=== PATIENT | female | born 1990 | race Caucasian/White ===

== ENCOUNTER → 2018-10-27 18:50 | Outpatient (CLI) | payer OTHER, SELFPAY | PROVIDERS: Family Provider Obstetrics & Gynecology; PCP Obstetrics & Gynecology; Visit Provider Physician Assistant | DX: N89.8 Other specified noninflammatory disorders of vagina (principal) | CPT/HCPCS: 87210 ==

== ENCOUNTER → 2018-10-30 12:17 | Outpatient (CLI) | payer OTHER, SELFPAY ==
--- NOTE | 2018-10-30 12:19 | DI.US.S_ITS ---
PROCEDURE: US PELVIC COMPLETE INDICATIONS: VAGINAL DISCHARGE TECHNIQUE: Real-time scanning was performed of the pelvic organs, with image documentation. Additional endovaginal scanning was necessary due to incomplete visualization of the adnexal and endometrial structures by transabdominal scanning. COMPARISON: None. FINDINGS: Transabdominal scanning: Limited scanning through the kidneys shows no hydronephrosis. No pathologic free abdominal or pelvic fluid. The uterus is vertically oriented with grossly normal contours. Endovaginal scanning: Uterus: Uterus is normal in size at 10.4 x 4.9 x 7.6 cm. The endometrium measures 9.4 mm in combined thickness. Normal myometrial vascularity. Trace amount of simple appearing fluid present in the cervix. Ovaries: Right ovary measures 3.7 x 1.9 x 3.3 cm and the left measures 3.6 x 1.5 x 1.9 cm. Left ovary contains a dominant follicle measuring 1.7 cm. Right ovary demonstrates normal follicular echotexture. Both ovaries have appropriate vascularity. No suspicious adnexal masses or free fluid. IMPRESSION: Normal pelvic ultrasound. Dictated by: Hayde Lunsford M.D. on 10/30/2018 at 14:09 Approved by: Hayde Lunsford M.D. on 10/30/2018 at 14:11
== END ==
PROVIDERS: Family Provider Obstetrics & Gynecology; PCP Obstetrics & Gynecology; Visit Provider Physician Assistant
DX: N89.8 Other specified noninflammatory disorders of vagina (principal)
CPT/HCPCS: 76830; 76856

== ENCOUNTER → 2018-11-16 12:51 | Outpatient (CLI) | payer OTHER, SELFPAY ==
[2018-11-16 12:53] LABS: Bacteria Urine None Seen; RBC Urine None Seen (0-5/HPF); WBC Urine None Seen (0-5/HPF)
[2018-11-16 13:08] LABS: Appearance Urine UA CLEAR; Bilirubin Urine UA NEGATIVE (NEGATIVE); Color Urine UA YELLOW; Glucose Urine UA NEGATIVE (Negative); Ketones Urine UA NEGATIVE (NEGATIVE); Leukocyte Esterase Urine UA NEGATIVE (NEGATIVE); Nitrite Urine UA NEGATIVE (Negative); Occult Blood Urine UA 2+ (Negative); Protein Urine UA NEGATIVE (Negative); Urobilinogen Urine UA 0.2 E.U./dL (0.2)
[2018-11-16 13:25] LABS: Culture Indicated Urine Cult Not Indicated; Mucus Urine 1+ (Negative); Squamous Epithelial Cell Urine 1-5 /HPF (0-5/HPF); Triple Phosphate Crystal Urine Few
[2018-11-16 14:43] LABS: Urine Chlamydia NOT DETECTED; Urine N gonorrhoeae NOT DETECTED
== END ==
PROVIDERS: Family Provider Obstetrics & Gynecology; PCP Obstetrics & Gynecology; Visit Provider Physician Assistant
DX: N89.8 Other specified noninflammatory disorders of vagina (principal)
CPT/HCPCS: 81001; 87491; 87591

== ENCOUNTER → 2020-03-28 08:58 | Outpatient (CLI) | payer OTHER, SELFPAY | PROVIDERS: Family Provider Obstetrics & Gynecology; PCP Nurse Practitioner Family; Visit Provider Physician Assistant | DX: R30.0 Dysuria (principal) | CPT/HCPCS: 87077; 87086; 87186 ==

== ENCOUNTER → 2020-07-12 14:08 | Outpatient (CLI) | payer OTHER, SELFPAY | PROVIDERS: Family Provider Obstetrics & Gynecology; PCP Nurse Practitioner Family; Visit Provider Physician Assistant | DX: N34.3 Urethral syndrome, unspecified (principal) | CPT/HCPCS: 87086 ==

== ENCOUNTER → 2021-05-02 09:09 | Outpatient (CLI) | payer OTHER, SELFPAY ==
[2021-05-02 09:34] LABS: Pregnancy Test Urine Negative (Negative)
== END ==
PROVIDERS: Family Provider Obstetrics & Gynecology; PCP Nurse Practitioner Family; Visit Provider Physician Assistant
DX: R30.9 Painful micturition, unspecified (principal); N92.6 Irregular menstruation, unspecified
CPT/HCPCS: 81025; 87077; 87086

== ENCOUNTER → 2023-07-23 08:48 | Outpatient (CLI) | payer OTHER, SELFPAY ==
[2023-07-23 09:44] LABS: Add Manual Diff / Slide Review NO; Basophils Absolute Auto 0 /uL (0-100); Basophils Percent Auto 0.6 % (0-2); Eosinophils Absolute Auto 100 /uL (0-450); Eosinophils Percent Auto 1.6 % (2-4); Hematocrit 40.2 % (36-46); Hemoglobin 13.5 g/dL (12.0-16.0); Lymphocytes Absolute Auto 2000 /uL (1100-4500); Lymphocytes Percent Auto 34.4 % (25-40); Mean Corpuscular HGB Conc 33.7 % (30-36); Mean Corpuscular Hemoglobin 29.1 PG (26-34); Mean Corpuscular Volume 86.3 fL (80-100); Monocytes Absolute Auto 500 /uL (0-900); Monocytes Percent Auto 8.7 % (3-14); Neutrophils Absolute Auto 3100 /uL (1500-7000); Neutrophils Percent Auto 54.7 % (50-75); Platelet Count 286 X10^3/uL (150-400); Red Blood Cell Count 4.66 X10^6/uL (4.0-5.2); Red Cell Distribution Width 13.3 % (11.6-14.8); White Blood Cell Count 5.7 X10^3/uL (4.5-11.0)
[2023-07-23 09:54] LABS: Hemoglobin A1C% w Est Avg Glu 5.7 % (4.0-6.0)
[2023-07-23 10:10] LABS: Alanine Aminotransferase 24 IU/L (<35); Albumin 4.6 g/dL (3.5-5.0); Albumin Globulin Ratio 1.5 (1.0-2.8); Alkaline Phosphatase 55 U/L (38-126); Aspartate Aminotransferase 24 IU/L (14-36); BUN Creatinine Ratio 19.8 (6-22); Bilirubin Total 0.6 mg/dL (0.2-1.3); Blood Urea Nitrogen 16 mg/dL (7-17); Carbon Dioxide 24 mmol/L (22-32); Chloride 105 mmol/L (98-107); Cholesterol 162 mg/dL (140-199); Estimated Glomerular Filt Rate > 60 mL/min (>60); Globulin 3.1 g/dL (1.7-4.1); Glucose 94 mg/dL (70-100); HDL Cholesterol 51 mg/dL (40-60); HEMOLYSIS < 15 (0-50); LDL Cholesterol Calculated 86 mg/dL (<100); Potassium 4.7 mmol/L (3.4-5.1); Sodium 138 mmol/L (137-145); Total Protein 7.7 g/dL (6.3-8.2); Triglycerides 127 mg/dL (35-150)
[2023-07-23 10:37] LABS: TSH w/ Reflex to FT4 1.02 uIU/mL (0.47-4.68)
== END ==
PROVIDERS: Family Provider Obstetrics & Gynecology; PCP Family Medicine; Referring Provider Family Medicine; Visit Provider Family Medicine
DX: Z00.00 Encounter for general adult medical examination without abnormal findings (principal)
CPT/HCPCS: 36415; 80053; 80061; 83036; 84443; 85025

== ENCOUNTER → 2024-03-16 08:28 | Outpatient (CLI) | payer OTHER, SELFPAY ==
[2024-03-16 12:07] LABS: Urine N gonorrhoeae NOT DETECTED
[2024-03-16 12:09] LABS: Urine Chlamydia NOT DETECTED
== END ==
PROVIDERS: Family Provider Obstetrics & Gynecology; PCP Family Medicine; Visit Provider Student in an Organized Health Care Education/Training Program
DX: Z11.3 Encounter for screening for infections with a predominantly sexual mode of transmission (principal)
CPT/HCPCS: 87491; 87591

== ENCOUNTER → 2024-04-17 11:13 | Outpatient (CLI) | payer OTHER, SELFPAY ==
[2024-04-17 12:41] LABS: Add Manual Diff / Slide Review NO; Basophils Absolute Auto 0 /uL (0-100); Basophils Percent Auto 0.2 % (0-2); Eosinophils Absolute Auto 100 /uL (0-450); Eosinophils Percent Auto 0.6 % (2-4); Hematocrit 39.3 % (36-46); Hemoglobin 13.6 g/dL (12.0-16.0); Lymphocytes Absolute Auto 2300 /uL (1100-4500); Lymphocytes Percent Auto 21.8 % (25-40); Mean Corpuscular HGB Conc 34.7 % (30-36); Mean Corpuscular Hemoglobin 29.9 PG (26-34); Mean Corpuscular Volume 86.1 fL (80-100); Monocytes Absolute Auto 700 /uL (0-900); Monocytes Percent Auto 6.3 % (3-14); Neutrophils Absolute Auto 7600 /uL (1500-7000); Neutrophils Percent Auto 71.1 % (50-75); Platelet Count 327 X10^3/uL (150-400); Red Blood Cell Count 4.56 X10^6/uL (4.0-5.2); Red Cell Distribution Width 13.5 % (11.6-14.8); White Blood Cell Count 10.7 X10^3/uL (4.5-11.0)
[2024-04-17 12:54] LABS: Natera Collection Specimen Collected
[2024-04-17 13:28] LABS: Hepatitis B Surface Antigen NEGATIVE s/c (NEGATIVE)
[2024-04-17 13:51] LABS: HIV 1 & 2 Ab/Ag 4th Gen Combo NEGATIVE (NEGATIVE); Hep C Virus Ab w/Reflex Quant NEGATIVE s/c (NEGATIVE)
[2024-04-18 06:18] LABS: RPR Screen Non Reactive (Non Reactive)
[2024-04-18 07:20] LABS: Varicella IgG Antibody 266 index (Immune >165)
== END ==
PROVIDERS: Family Provider Obstetrics & Gynecology; PCP Family Medicine; Referring Provider Student in an Organized Health Care Education/Training Program; Visit Provider Student in an Organized Health Care Education/Training Program
DX: O09.819 Supervision of pregnancy resulting from assisted reproductive technology, unspecified trimester (principal); Z3A.14 14 weeks gestation of pregnancy
CPT/HCPCS: 36415; 80055; 86787; 86803; 86850; 86900; 86901; 87389

== ENCOUNTER → 2024-05-15 14:32 | Outpatient (CLI) | payer OTHER, SELFPAY ==
[2024-05-19 21:12] LABS: AFP Value 39.2 ng/mL (.); Gest Age on Col Date 17.6 weeks (.); Insulin Dep Diabetes No (.); OSBR Risk 1IN 8371 (.); Results Report (.); Test Results *Screen Negative* (.)
== END ==
PROVIDERS: Family Provider Obstetrics & Gynecology; PCP Family Medicine; Referring Provider Obstetrics & Gynecology; Visit Provider Obstetrics & Gynecology
DX: Z36.9 Encounter for antenatal screening, unspecified (principal)
CPT/HCPCS: 82105

== ENCOUNTER → 2024-05-27 10:44 | Outpatient (CLI) | payer OTHER, SELFPAY ==
--- NOTE | 2024-05-27 11:15 | DI.US.S_ITS ---
PROCEDURE: US OB >= 14 WEEKS FETUS INDICATIONS: anatomy scan The calculations are made using the working CASSIE of 10/14/2024. TECHNIQUE: Real-time scanning was performed of the fetus, with image documentation and biometric measurements. Endovaginal scanning: No COMPARISON: None. FINDINGS: General: A single living intrauterine gestation is present. Presentation: Variable. Placenta: Placental position is posterior , without previa. Amniotic fluid index: 15.8 cm, normal range is 5-24 cm. Single deepest vertical pocket is 4.7 cm. heart rate: 157 beats per minute. Maternal cervical canal: 5.1 cm long. Normal lower limit is 2.5 cm. biometrics: Biparietal diameter: 4.6 cm, 20 week 0 day Head circumference: 17.3 cm, 19 week 6 day Abdominal circumference: 16.5 cm, 21 week 4 day Femur length: 3.3 cm, 20 week 2 day Clinically estimated gestational age: 20 week 0 day Composite gestational age from present scan: 20 week 3 day Estimated weight and percentile: 380 g, 88 percentile Anatomic survey: Neuro: Ventricles are non-dilated at less than 10 mm. Cisterna magna is normal at 3-11 mm. Cerebellum is normal in size and morphology. Nuchal skin fold: Normal at less than 6 mm between 14-21 weeks gestational age. Face: Nose and lips, facial profile are normal. Spine: No evidence for spina bifida. Heart: 4-chambered heart is present, with normal ventricular outflow tracts. Diaphragm: Diaphragm is intact. Stomach: Left-sided stomach is present. Kidneys: No hydronephrosis. Normal is less than 5 mm in 2nd trimester, less than 7 mm in 3rd trimester. Cord: 3-vessel cord has orthotopic insertion. Bladder: Normal in size. Extremities: All 4 extremities identified. IMPRESSION: Single live intrauterine consistent with 20 week 3 day gestation by current ultrasound. Normal anatomic survey Approved by: Cullen Villanueva M.D. on 05/27/2024 at 17:50
== END ==
LOC: US 10:44
PROVIDERS: Family Provider Obstetrics & Gynecology; PCP Family Medicine; Referring Provider Student in an Organized Health Care Education/Training Program; Visit Provider Student in an Organized Health Care Education/Training Program
DX: Z34.02 Encounter for supervision of normal first pregnancy, second trimester (principal); Z3A.20 20 weeks gestation of pregnancy
CPT/HCPCS: 76811

== ENCOUNTER → 2024-07-10 12:00 | Outpatient (CLI) | payer OTHER, SELFPAY ==
[2024-07-10 14:04] LABS: Hematocrit 37.5 % (36-46); Hemoglobin 12.7 g/dL (12.0-16.0)
[2024-07-10 14:32] LABS: GTT (PREG) 1 Hour PP 50gm Dose 207 mg/dL (76-139)
== END ==
PROVIDERS: Family Provider Obstetrics & Gynecology; PCP Family Medicine; Referring Provider Student in an Organized Health Care Education/Training Program; Visit Provider Student in an Organized Health Care Education/Training Program
DX: Z34.03 Encounter for supervision of normal first pregnancy, third trimester (principal); Z3A.26 26 weeks gestation of pregnancy
CPT/HCPCS: 36415; 82950; 85014; 85018

== ENCOUNTER → 2024-07-22 09:50 | Outpatient (CLI) | payer OTHER, SELFPAY ==
--- NOTE | 2024-07-22 16:20 | DIAB.GDA ---
Initial Gestational Diabetes Assessment Name: Larisa Link Date: 07/22/24 Time: Dx: Gestational Diabetes Provider: Abigail CASSIE: 10/14/2024 Weeks: 28 Larisa presents for initial visit today with spouse, Alonzo. No previous GDM dx with prior pregnancies. Last hgA1c in 07/2023 indicate prediabetes range of 5.7%. Endorses FH of DM with father. No OGTT but significantly elevated screen of 207mg/dl. Reports her main concern today is how BG may impact baby. Also wondering if she needs DM medications, which at this time does not seem needed given BG management. Reports adequate, sometimes over rec CHO intake. Most BG in goal even with higher CHO intake, except when eating fast food per report. fast food intake more likely during basketball season due to traveling [employer]. Diet Recall: 8a: sweetened oatmeal x 1 pkt OR bagel and cream cheese OR protein bar OR sasage, egg, +/- small pancake 1-2 845a: banana 11a-1p: leftovers or apple and pb or cheese sn: 1c trailmix or nothing 6-8p: protein, 1/2-1c CHO, nonstarch veggies sn: nothing or ice cream 80oz water 12oz milk with dinner Anthropometrics: Ht: 64 Wt: 195# 07/10/24 Prepregnancy wt: 175# Physical Activity: Walks after dinner x 15-20 mins. 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 Self-Monitoring Blood Glucose: Checking FBG and 2 hour pc. All FBG in goal and postprandial readings all in goal, except elevation after eating fast food. Date Pre Post Pre Post Pre Post HS 07/16 82 81 99 93 07/17 78 65 109 07/18 80 112 144 107 07/19 81 79 107 120 07/20 84 91 97 95 07/21 78 96 93 07/22 79 Diabetes Medications: none Pertinent Labs: Screen: 207 mg/dl 07/2024 HgA1c: 5.7% 07/2023 Nutrition Rx: Carbohydrates: Meal: 45-60g lunch and dinner; 30-45g breakfast Snack: 15-30g Nutrition Diagnosis: Altered nutrition related lab value r/t GDM dx aeb recent elevated glucola screen Nutrition and food related knowledge deficit r/t new diagnosis and no previous education aeb pt report and recent labs Intervention: This participant was very receptive. Provided appropriate educational handouts. Discussed the following topics: GDM pathophysiology and impact of hyperglycemia on mom and baby Risk for T2DM for mom and baby in the future Ways to reduce risk T2DM Plate Method, meal timing, carb counting, pairing macronutrients and spreading out CHO for better BG management Blood glucose goals (FBG: <95 and 1 hour <140 mg/dL or 2 hour <120mg/dl); importance of checking 4x per day (FBG and pc) Impact of macronutrients on blood glucose Recommended servings for carbohydrates at meals and snacks Brainstormed appropriate meal plan based on her food preferences Role of physical activity and following provider guidelines for safety Goals: Move banana away from breakfast, try afternoon- new Continue checking BG 4x per day - continue Follow-up: RAOUL SEWELL follow-up in one week via messaging and 2 weeks 1:1 Enedina Roca RDN, DONATO Certified Diabetes Care and Validation Engineer T: [phone] F: [phone] [email or web address] Thank you for this referral
== END ==
PROVIDERS: Family Provider Obstetrics & Gynecology; PCP Family Medicine; Referring Provider Student in an Organized Health Care Education/Training Program
DX: O24.419 Gestational diabetes mellitus in pregnancy, unspecified control (principal); Z3A.28 28 weeks gestation of pregnancy; Z71.3 Dietary counseling and surveillance; Z83.3 Family history of diabetes mellitus
CPT/HCPCS: 97802

== ENCOUNTER → 2024-08-06 08:52 | Outpatient (CLI) | payer OTHER, SELFPAY ==
--- NOTE | 2024-08-06 09:00 | DIAB.GDFU ---
Follow-up Gestational Diabetes Assessment Name: Larisa Link Date: 08/06/23 Time: 90a Dx: Gestational Diabetes Provider: Abigail CASSIE: 10/14/2024 Weeks: 30 Larisa presents for follow-up today. No previous GDM dx with prior pregnancies. Last hgA1c in 07/2023 indicate prediabetes range of 5.7%. Endorses FH of DM with father. No OGTT but significantly elevated screen of 207mg/dl. Reports some stress with this diagnosis and choosing foods to eat. Endorses some guilt about any elevated BG, despite most being in goal. A few times had a BG <70mg/dl after very low CHO meal and felt fatigue. Ate to reduce symptoms and felt better. May be under eating at times due to worries about BG results. Was at times feeling stress about a BG of even 100mg/dl after meal. Eating cottage cheese if still hungry after a meal. 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 Diet Recall: 8a: sweetened oatmeal x 1 pkt with 12oz milk OR 2 small protein pancakes with sausage and eggs 11a-1p: leftovers prepared by spouse 1-3p: banana or apple and cheese 6-8p: taco bowl with 3/4c brown rice OR steak, potatoes and veg OR breaded pork chop with veggies and salad Anthropometrics: Ht: 64 Wt: 195# 07/10/24 Prepregnancy wt: 175# Physical Activity: Walks after dinner x 15-20 mins. 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 Self-Monitoring Blood Glucose: Checking FBG and 2 hour pc. All FBG in goal and postprandial readings show 3 elevations over the last week (slightly less than week prior) and accounted fro with excessive intake, ie pizza or grilled cheese with tomato soup. Date Pre Post Pre Post Pre Post HS 07/31 94 102 92 110 08/01 93 68 105 105 08/02 79 104 110 120 08/03 83 114 125 08/04 81 88 136 160 08/05 83 109 119 08/06 89 Diabetes Medications: none Pertinent Labs: Screen: 207 mg/dl 07/2024 HgA1c: 5.7% 07/2023 Nutrition Rx: Carbohydrates: Meal: 45-60g lunch and dinner; 30-45g breakfast Snack: 15-30g Nutrition Diagnosis: Altered nutrition related lab value r/t GDM dx aeb recent elevated glucola screen Nutrition and food related knowledge deficit r/t new diagnosis and no previous education aeb pt report and recent labs- improving Intervention: This participant was very receptive. Provided appropriate educational handouts. Discussed the following topics: Carb recs and label reading Portions at lunch and brainstorming ways to improve Practice of anton for herself and acknowledging she is doing well overall with GDM Review of ADA recs for 2 hours pc of 100-120mg/dl Eating out in brief, more next visit Goals: Move banana away from breakfast, try afternoon- met Continue checking BG 4x per day - met Ask spouse to measure carbs in lunches- new Bring snacks to work- new Practice some anton with self- new Follow-up: RAOUL SEWELL follow-up 2 weeks 1:1 Enedina Roca RDN, DONATO Certified Diabetes Care and Bumper Operator T: [phone] F: [phone] [email or web address] Thank you for this referral
== END ==
PROVIDERS: Family Provider Obstetrics & Gynecology; PCP Family Medicine; Referring Provider Family Medicine
DX: O24.419 Gestational diabetes mellitus in pregnancy, unspecified control (principal); Z3A.30 30 weeks gestation of pregnancy; Z71.3 Dietary counseling and surveillance; Z83.3 Family history of diabetes mellitus
CPT/HCPCS: 97803

== ENCOUNTER → 2024-08-20 16:22 | Outpatient (CLI) | payer OTHER, SELFPAY ==
--- NOTE | 2024-08-20 16:28 | DIAB.GDFU ---
Follow-up Gestational Diabetes Assessment Name: Larisa Link Date: 08/20/23 Time: 335-4p Dx: Gestational Diabetes Provider: Abigail CASSIE: 10/14/2024 Weeks: 32 Larisa presents for follow-up today virtually using Portal. No previous GDM dx with prior pregnancies. Last hgA1c in 07/2023 indicate prediabetes range of 5.7%. Endorses FH of DM with father. No OGTT but significantly elevated screen of 207mg/dl. Alonzo has been portioning out lunches for her. Dinner readings have been higher. Anything with noodles or rice seems to be impacting BG. Processed foods at dinner also impact, ie rice a yasemin. Potatoes don?t impact as much. Brown rice reported has less impact. A few times, not eating much in the afternoon, then very hungry at dinner leading to larger portions. Practicing more anton with self, as we discussed. Had baby shower. [employer]-trv made some low CHO sweets for her. Daughter has a tournament this weekend out of town. Plans to bring sandwiches and snacks. Also using Starbucksck pot for evening meals on late night games. Less walks lately with basketball practice. SMBG: Date Pre Post Pre Post Pre Post notes 08/12 83 111 93 121 08/13 88 127 98 124 08/14 93 119 x 125 08/15 83 99 111 115 08/16 85 74 107 98 08/17 92 x 142 124 1 hour 08/18 80 94 105 142 Spaghetti at dinner 08/19 87 103 99 119 08/20 77 94 Add a more robust afternoon snack (more protein, some carb, and veggies) Keep noodles or rice or pasta to 1c If possible, Anthropometrics: Ht: 64 Wt: 195# 07/10/24 Prepregnancy wt: 175# Physical Activity: Walks after dinner x 15-20 mins. 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 Self-Monitoring Blood Glucose: Checking FBG and 2 hour pc. All FBG in goal and postprandial readings show 3 elevations over the last week (slightly less than week prior) and accounted fro with excessive intake, ie pizza or grilled cheese with tomato soup. Date Pre Post Pre Post Pre Post HS 07/31 94 102 92 110 08/01 93 68 105 105 08/02 79 104 110 120 08/03 83 114 125 08/04 81 88 136 160 08/05 83 109 119 08/06 89 Diabetes Medications: none Pertinent Labs: Screen: 207 mg/dl 07/2024 HgA1c: 5.7% 07/2023 Nutrition Rx: Carbohydrates: Meal: 45-60g lunch and dinner; 30-45g breakfast Snack: 15-30g Nutrition Diagnosis: Altered nutrition related lab value r/t GDM dx aeb recent elevated glucola screen Nutrition and food related knowledge deficit r/t new diagnosis and no previous education aeb pt report and recent labs- improving Intervention: This participant was very receptive. Provided appropriate educational handouts. Discussed the following topics: Carb recs and label reading Portions at lunch and brainstorming ways to improve Practice of anton for herself and acknowledging she is doing well overall with GDM Review of ADA recs for 2 hours pc of 100-120mg/dl Eating out in brief, more next visit Goals: Move banana away from breakfast, try afternoon- met Continue checking BG 4x per day - met Ask spouse to measure carbs in lunches- new Bring snacks to work- new Practice some anton with self- new Follow-up: RAOUL SEWELL follow-up 2 weeks 1:1 llow-up in one week Enedina Roca RDN, DONATO Certified Diabetes Care and Sexual Assault Social Worker T: [phone] F: [phone] [email or web address] Thank you for this referral
--- NOTE | 2024-08-20 16:31 | DIAB.GDFU ---
Follow-up Gestational Diabetes Assessment Name: Larisa Link Date: 08/20/23 Time: 335-4p Dx: Gestational Diabetes Provider: Abigail CASSIE: 10/14/2024 Weeks: 32 Larisa presents for follow-up today virtually using Portal. No previous GDM dx with prior pregnancies. Last hgA1c in 07/2023 indicate prediabetes range of 5.7%. Endorses FH of DM with father. No OGTT but significantly elevated screen of 207mg/dl. Alonzo has been portioning out lunches for her. Dinner readings have been higher. Anything with noodles or rice seems to be impacting BG. Processed foods at dinner also impact, ie rice a yasemin. Potatoes don?t impact as much. Brown rice reported has less impact. A few times, not eating much in the afternoon, then very hungry at dinner leading to larger portions. Practicing more anton with self, as we discussed. Had baby shower. [employer]sn[employer]fsn made some low CHO sweets for her. Daughter has a tournament this weekend out of town. Plans to bring sandwiches and snacks. Also using crock pot for evening meals on late night games. Less walks lately with basketball practice. Plans for repeat c/s. Anthropometrics: Ht: 64 Wt: 200# 08/10/2023 195# 07/10/24 Prepregnancy wt: 175# Physical Activity: Not walking as much after meals recently with restart of basketball with kiddos. Self-Monitoring Blood Glucose: Checking FBG and 2 hour pc. All FBG in goal and postprandial readings show a pattern of after dinner elevations. Seems related to portions and excessive hunger pre meal. Date Pre Post Pre Post Pre Post notes 08/12 83 111 93 121 08/13 88 127 98 124 08/14 93 119 x 125 08/15 83 99 111 115 08/16 85 74 107 98 08/17 92 x 142 124 1 hour 08/18 80 94 105 142 Spaghetti at dinner 08/19 87 103 99 119 08/20 77 94 Diabetes Medications: none Pertinent Labs: Screen: 207 mg/dl 07/2024 HgA1c: 5.7% 07/2023 Nutrition Rx: Carbohydrates: Meal: 45-60g lunch and dinner; 30-45g breakfast Snack: 15-30g Nutrition Diagnosis: Altered nutrition related lab value r/t GDM dx aeb recent elevated glucola screen Nutrition and food related knowledge deficit r/t new diagnosis and no previous education aeb pt report and recent labs- improved Predicted excessive CHO intake r/t hunger in the afternoon from inadequate intake at snack aeb pt report- new Intervention: This participant was very receptive. Provided appropriate educational handouts. Discussed the following topics: Portions for meals and snacks Incorporating more protein and veggies at afternoon snack POrtions for CHO for potatoes vs pasta/rice Physical activity Goals: Ask spouse to measure carbs in lunches- met Bring snacks to work- met Practice some anton with self- met Add a more robust afternoon snack (more protein, some carb, and veggies)- new Keep noodles or rice or pasta to 1c- new If possible, move more after dinner- new Follow-up: RAOUL SEWELL follow-up 2 weeks Enedina Roca RDN, DONATO Certified Diabetes Care and [employer] Worker T: [phone] F: [phone] [email or web address] Thank you for this referral
== END ==
PROVIDERS: Family Provider Obstetrics & Gynecology; PCP Family Medicine; Referring Provider Student in an Organized Health Care Education/Training Program
DX: O24.419 Gestational diabetes mellitus in pregnancy, unspecified control (principal); Z3A.32 32 weeks gestation of pregnancy; Z71.3 Dietary counseling and surveillance; Z83.3 Family history of diabetes mellitus
CPT/HCPCS: 97803

== ENCOUNTER → 2024-08-25 08:29 | Outpatient (CLI) | payer OTHER, SELFPAY ==
--- NOTE | 2024-08-25 08:29 | DI.US.S_ITS ---
PROCEDURE: US OB LIMITED INDICATIONS: GDM. IVF. GROWTH. OUTSIDE/PRIOR DATING DATA: IVF patient. Unknown transfer date or embryo age First dating scan (date and location): Not available. The calculations are made using the working CASSIE of 10/14/24. TECHNIQUE: Real-time scanning was performed of the fetus, with image documentation. Endovaginal scanning: Not performed COMPARISON: None. FINDINGS: A single living intrauterine gestation is present. Presentation: Vertex. Placenta: Placental position is posterior, without previa. Amniotic fluid index: 24.6 cm, normal range is 5-24 cm. Single deepest vertical pocket is 6.9 cm. heart rate: 149 beats per minute. Maternal cervical canal: Not well seen Biparietal diameter 8.8 cm, 35 weeks two days Head circumference 31.9 cm, 35 weeks six days Abdominal circumference 30.6 cm, 34 weeks four days Femur length 6.4 cm, 32 weeks six days Composite gestational age 34 weeks five days Clinically expected gestational age 32 weeks six days Estimated weight 2392 g, 83rd percentile IMPRESSION: Single living intrauterine with estimated weight at the 83rd percentile. Composite gestational age by today's measurements is one weeks six days ahead the clinically expected gestational age. Amniotic fluid volume at the upper limits of normal. Dictated by: Hayde Lunsford M.D. on 08/25/2024 at 18:20 Approved by: Hayde Lunsford M.D. on 08/25/2024 at 18:26
== END ==
PROVIDERS: Family Provider Obstetrics & Gynecology; PCP Family Medicine; Referring Provider Student in an Organized Health Care Education/Training Program; Visit Provider Student in an Organized Health Care Education/Training Program
DX: O09.813 Supervision of pregnancy resulting from assisted reproductive technology, third trimester (principal); O99.213 Obesity complicating pregnancy, third trimester; O24.410 Gestational diabetes mellitus in pregnancy, diet controlled; Z3A.32 32 weeks gestation of pregnancy
CPT/HCPCS: 76815

== ENCOUNTER → 2024-09-04 13:12 | Outpatient (CLI) | payer OTHER, SELFPAY ==
--- NOTE | 2024-09-04 17:04 | DIAB.GDFU ---
Follow-up Gestational Diabetes Assessment Name: Larisa Link Date:09/04/24 Time: 115-2p Dx: Gestational Diabetes Provider: Abigail CASSIE: 10/14/2024 Weeks: 34 Larisa presents for follow-up today virtually using [facility] Portal. No previous GDM dx with prior pregnancies. Last hgA1c in 07/2023 indicate prediabetes range of 5.7%. Endorses FH of DM with father. No OGTT but significantly elevated screen of 207mg/dl. Recently sick with a cold, not sleeping well, less physical activity Recent growth scan with 83% percentile and upper normal AFV. Having more robust afternoon snack. Continues to practice anton with food choices and BG Snacking and finding lower carb options is helping, ie yogurts, cottage cheese, nuts, pb Avoiding noodles. Enjoying potatoes and brown rice in moderation, approx. 1c. Breakfast a bit high in CHO for morning meal. Would normally anticipate elevations r/t higher insulin resistance in the mornings with , however her after meal numbers are in goal. Does not plan on future pregnancies. Had success with two other children. Diet Recall: 8am: bagel and cream cheese OR oatmeal 2 pkt 11a-1p: leftovers portioned out OR 1-3p: Apple and cheese OR [place]yan yogurt OR banana and PB OR trailmix 6-8p: potatoes or brown rice with veggies and protein HS snack: nothing small tartapple OR rebel ice cream 2/3c (7g CHO) Plans for repeat c/s. Anthropometrics: Ht: 64 Wt: 202# 08/24/24 200# 08/10/2023 195# 07/10/24 Prepregnancy wt: 175# Physical Activity: Restarted walks until getting sick recently. Self-Monitoring Blood Glucose: Checking FBG and 2 hour pc. FBG in goal. Most pc number in goal with great improvement of after dinner last visits since last visit. Date Pre Post Pre Post Pre Post 08/29 83 97 131 Leftover noodles 105 08/30 85 101 113 132 1 hour 08/31 82 103 115 109 09/01 87 101 111 120 09/02 88 95 105 123 09/03 83 91 115 130 1 hour 09/04 81 92 Diabetes Medications: none Pertinent Labs: Screen: 207 mg/dl 07/2024 HgA1c: 5.7% 07/2023 Nutrition Rx: Carbohydrates: Meal: 45-60g lunch and dinner; 30-45g breakfast Snack: 15-30g Nutrition Diagnosis: -Altered nutrition related lab value r/t GDM dx aeb recent elevated glucola screen -Nutrition and food related knowledge deficit r/t new diagnosis and no previous education aeb pt report and recent labs- improved -Predicted excessive CHO intake r/t hunger in the afternoon from inadequate intake at snack aeb pt report- new Intervention: This participant was very receptive. Provided appropriate educational handouts. Discussed the following topics: Portions for meals and snacks Incorporating more protein and veggies at afternoon snack POrtions for CHO for potatoes vs pasta/rice Physical activity Recent blood sugar results and impact of food and hormones Review of macronutrient recommendations during Benefits, resources, and nutrition for recommendations for nutrition and physical activity recommendations for T2DM risk reduction - OGTT at 6-12 weeks - Checking blood sugars twice per week (goal: fasting <100 mg/dL and 2 hour pc <140 mg/dL)until 6wk check up - HgA1c q 1-3 years. Goals: Add a more robust afternoon snack (more protein, some carb, and veggies)- met Keep noodles or rice or pasta to 1c- met If possible, move more after dinner- met Try moving dessert 3 hours from dinner- new Restart walks now that you are feeling better- new Hga1c q year 6-12 months after baby born- new Follow-up: RAOUL SEWELL follow-up prn. encouraged her to call or message if she needs further f/u. Also encouraged hgA1c 6-12 months and then annually given her prediabetes range hgA1c previously. Enedina Roca RDN, [facility] Certified Diabetes Care and Despatching And Receiving Clerk T: [phone] F: [phone] [email or web address] Thank you for this referral
== END ==
PROVIDERS: Family Provider Obstetrics & Gynecology; PCP Family Medicine; Referring Provider Student in an Organized Health Care Education/Training Program
DX: O24.419 Gestational diabetes mellitus in pregnancy, unspecified control (principal); Z3A.34 34 weeks gestation of pregnancy; Z71.3 Dietary counseling and surveillance
CPT/HCPCS: 97803

== ENCOUNTER → 2024-09-21 10:17 | Outpatient (CLI) | payer OTHER, SELFPAY ==
[2024-09-22 08:24] LABS: Strep Grp B PCR NEG for Grp B Strep
== END ==
PROVIDERS: Family Provider Obstetrics & Gynecology; PCP Family Medicine; Visit Provider Student in an Organized Health Care Education/Training Program
DX: Z36.85 Encounter for antenatal screening for Streptococcus B (principal)
CPT/HCPCS: 87653

== ENCOUNTER 2024-09-23 09:51 | Outpatient (CLI) | payer OTHER, SELFPAY | END 2024-09-23 11:25 | disposition home or self-care (01) | LOC: LABOR 10:06 → OB 14:12 | PROVIDERS: Family Provider Obstetrics & Gynecology; PCP Family Medicine; Referring Provider Obstetrics & Gynecology; Visit Provider Obstetrics & Gynecology | DX: O36.8130 Decreased fetal movements, third trimester, not applicable or unspecified (principal); O24.410 Gestational diabetes mellitus in pregnancy, diet controlled; O09.813 Supervision of pregnancy resulting from assisted reproductive technology, third trimester; Z3A.37 37 weeks gestation of pregnancy | CPT/HCPCS: 59025; G0378; G0379 ==

== ENCOUNTER 2024-09-25 13:37 | Outpatient (CLI) | payer OTHER, SELFPAY ==
--- NOTE | 2024-09-25 14:11 | PM.OBTRLD ---
Visit Information Visit Information Date of evaluation: 09/25/24 On-call OB Provider: Josselyn Hayes Reason for Evaluation: Yes other Comments/Additional reasons for admission: decreased movement Vital Signs Vital Signs: Reviewed in obix, within normal parameters COUNTS INCLUDE 234 BEDS AT THE [facility] Medical History (Updated 09/25/24 @ 17:29 by Josselyn Hayes DO) Migraine with aura UTI (urinary tract infection) Self-harming behavior History of section (07/10/16) Sterilization Anorexia nervosa (~2001) Chlamydia (~2011) Surgical History (Updated 02/27/24 @ 08:15 by Krystle Harry, RN) History of gynecologic surgery Anesthesia Status post knee surgery (~2006) History of third molar tooth extraction Status post delivery (04/16/12) Family History (Updated 02/27/24 @ 08:18 by Krystle Harry RN) Father Hypertension ADD (attention deficit disorder) Grandfather Cancer Grandmother Stomach cancer Non-smoker Grandfather Lung cancer Smoker Prostate cancer Brother ADD (attention deficit disorder) Aunt Breast cancer Social History (System 11/17/18 @ 08:07 by Elba Freeman) marital status: number of children: 2 household members: spouse and children lives independently: Yes caregiver/support person: Yes housing: house pets and animals: Yes (cats, guinea pigs) 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) current occupational exposures/hazards: No special sam needs: No travel history: recent (domestic only) seatbelt use: always water heater temp set < 120 deg: Yes working smoke detector in home: Yes fire extinguisher in home: Yes carbon monox detector in home: Yes firearms in home: Yes firearms unloaded and locked: Yes do you feel safe at home: Yes Smoking Status: Never smoker second hand exposure: No alcohol intake: former (1 glass of wine 1-2 times per week) substance use type: does not use during the past year weight has: remained stable well-balanced diet: daily or most days daily servings fruits/ve or more times/day caffeine: Yes (small AM cup coffee (stopped since becoming )) Type(s) of exercise: walking and other (hiking) frequency: 3-4 times per week Evaluation Evaluation Baseline heart rate: 130 Variability: Moderate (11-25) monitor accelerations: Present Monitor Decelerations: Absent Category of Tracing: Reactive Diagnosis, Plan/Disposition Final Diagnosis (1) Decreased movement: Status: Acute (2) 37 weeks gestation of : Status: Acute Plan/Disposition Plan: Patient presented to triage for decreased movement today. Reactive NST noted on monitoring. -patient discharged to home with outpatient follow up OB Disposition: home
== END 2024-09-25 14:32 | disposition home or self-care (01) ==
LOC: OB 14:40
PROVIDERS: Family Provider Obstetrics & Gynecology; PCP Family Medicine; Referring Provider Student in an Organized Health Care Education/Training Program; Visit Provider Student in an Organized Health Care Education/Training Program
DX: O36.8130 Decreased fetal movements, third trimester, not applicable or unspecified (principal); Z3A.37 37 weeks gestation of pregnancy
CPT/HCPCS: 59025; G0378; G0379

== ENCOUNTER 2024-09-30 10:52 | Outpatient (CLI) | payer OTHER, SELFPAY ==
--- NOTE | 2024-09-30 11:32 | PM.OBTRLD ---
Visit Information Visit Information Date of evaluation: 09/30/24 Primary OB Provider: Josselyn Hayes On-call OB Provider: Tyesha Gomes Reason for Evaluation: Yes non-stress test Comments/Additional reasons for admission: A1GDM Vital Signs Vital Signs: wnl [facility] Medical History (Updated 09/28/24 @ 10:35 by Josselyn Hayes DO) Migraine with aura UTI (urinary tract infection) Self-harming behavior History of section (07/10/16) Sterilization Anorexia nervosa (~2001) Chlamydia (~2011) Surgical History (Updated 02/27/24 @ 08:15 by Krystle Harry, RN) History of gynecologic surgery Anesthesia Status post knee surgery (~2006) History of third molar tooth extraction Status post delivery (04/16/12) Family History (Updated 02/27/24 @ 08:18 by Krystle Harry RN) Father Hypertension ADD (attention deficit disorder) Grandfather Cancer Grandmother Stomach cancer Non-smoker Grandfather Lung cancer Smoker Prostate cancer Brother ADD (attention deficit disorder) Aunt Breast cancer Social History (System 11/17/18 @ 08:07 by Elba Freeman) marital status: number of children: 2 household members: spouse and children lives independently: Yes caregiver/support person: Yes housing: house pets and animals: Yes (cats, guinea pigs) 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) current occupational exposures/hazards: No special sam needs: No travel history: recent (domestic only) seatbelt use: always water heater temp set < 120 deg: Yes working smoke detector in home: Yes fire extinguisher in home: Yes carbon monox detector in home: Yes firearms in home: Yes firearms unloaded and locked: Yes do you feel safe at home: Yes Smoking Status: Never smoker second hand exposure: No alcohol intake: former (1 glass of wine 1-2 times per week) substance use type: does not use during the past year weight has: remained stable well-balanced diet: daily or most days daily servings fruits/ve or more times/day caffeine: Yes (small AM cup coffee (stopped since becoming )) Type(s) of exercise: walking and other (hiking) frequency: 3-4 times per week Evaluation Evaluation Baseline heart rate: 140 Variability: Moderate (11-25) monitor accelerations: Present Monitor Decelerations: Absent Contraction Frequency (minutes): 5 Uterine Contraction Intensity: Mild Category of Tracing: Reactive Status: Category l Comments: irregular contractions, non-painful Diagnosis, Plan/Disposition Plan/Disposition Plan: reactive NST routine precautions f/u as scheduled OB Disposition: home
== END 2024-09-30 11:45 | disposition home or self-care (01) ==
LOC: LABOR 11:42 → OB 14:39
PROVIDERS: Family Provider Obstetrics & Gynecology; PCP Family Medicine; Referring Provider Student in an Organized Health Care Education/Training Program; Visit Provider Student in an Organized Health Care Education/Training Program
DX: O24.419 Gestational diabetes mellitus in pregnancy, unspecified control (principal); Z3A.38 38 weeks gestation of pregnancy
CPT/HCPCS: 59025; G0378; G0379

== ENCOUNTER 2024-10-05 09:56 | Outpatient (CLI) | payer OTHER, SELFPAY | END 2024-10-05 10:36 | disposition home or self-care (01) | LOC: LABOR 10:15 → OB 10-06 10:22 | PROVIDERS: Family Provider Obstetrics & Gynecology; PCP Family Medicine; Referring Provider Student in an Organized Health Care Education/Training Program; Visit Provider Student in an Organized Health Care Education/Training Program | DX: O24.419 Gestational diabetes mellitus in pregnancy, unspecified control (principal); O09.813 Supervision of pregnancy resulting from assisted reproductive technology, third trimester; Z3A.38 38 weeks gestation of pregnancy | CPT/HCPCS: 59025; G0378; G0379 ==

== ENCOUNTER 2024-10-08 05:44 | Inpatient (IN) | payer OTHER, SELFPAY ==
[2024-10-08 06:45] VITALS: BP 122/79
[2024-10-08] MEDS: LACTATED RINGERS 1,000 ML 999 ML IV (07:00)
[2024-10-08 07:08] LABS: Add Manual Diff / Slide Review NO; Basophils Absolute Auto 0 /uL (0-100); Basophils Percent Auto 0.5 % (0-2); Eosinophils Absolute Auto 100 /uL (0-450); Eosinophils Percent Auto 0.8 % (2-4); Hematocrit 36.9 % (36-46); Hemoglobin 12.3 g/dL (12.0-16.0); Lymphocytes Absolute Auto 2000 /uL (1100-4500); Lymphocytes Percent Auto 27.7 % (25-40); Mean Corpuscular HGB Conc 33.2 % (30-36); Mean Corpuscular Hemoglobin 29.4 PG (26-34); Mean Corpuscular Volume 88.4 fL (80-100); Monocytes Absolute Auto 600 /uL (0-900); Monocytes Percent Auto 7.8 % (3-14); Neutrophils Absolute Auto 4600 /uL (1500-7000); Neutrophils Percent Auto 63.2 % (50-75); Platelet Count 237 X10^3/uL (150-400); Red Blood Cell Count 4.18 X10^6/uL (4.0-5.2); Red Cell Distribution Width 14.2 % (11.6-14.8); White Blood Cell Count 7.2 X10^3/uL (4.5-11.0)
[2024-10-08] MEDS: LACTATED RINGERS 1,000 ML 42 ML IV (07:28)
--- NOTE | 2024-10-08 07:33 | P.HPOB_ITS ---
OB HPI Date/Time Date of admission: 10/08/24 Date Patient Seen: 10/08/24 Time Patient Seen: 07:33 History of Present Condition Chief complaint: INPT C SECTION CASSIE Calculator 2 Estimated Delivery Date Method Current WG Current Estimate 10/14/24 Manual 39w 1d FET 01/27/24 : 3 Para: 2 care: good care Dating criteria OB: LMP confirmed by 1st trimester US Ultrasounds: normal mid trimester US Obstetrical complications: gestational diabetes Narrative: Ultrasound Ultrasound Details:: Dating US 03/16/24: hayward IUP with CRL 3.06cm, + FCA 180bpm, normal appearing uterus, cervix, bilateral ovaries Anatomy US 05/27/24: normal anatomy, posterior placenta, EFW 88%ile Growth US 08/25/24: EFW 83%ile, BEL 24.6 Expected Delivery Route/Plan repeat c/s Specific Issues/Plans [x ] cfDNA- low risk XY; [x ] MSAFP- neg GDMA1--> Elevated 1hr GTT (207); following with childbirth educator C/S #3 (s/p BTL followed by reversal)--> [x ] schedule repeat at 39wks (scheduled 10/08/24) IVF , pt's own eggs and 's sperm--> [?x ] echo- normal;? [ x] growth sono (EFW 83%); [ x] weekly ATU at 36wks Obesity (pre- BMI 31) Alonzo (active duty) Assigned to Abigail Indications Operative indications ( section): previous uterine surgery Preadmission Labs Last OB Lab Results: 2 Blood Type O Positive 04/17/24 11:54 Antibody Screen Negative 04/17/24 11:54 Hct 36.9 % (36-46) 10/08/24 06:45 Hgb 12.3 g/dL (12.0-16.0) 10/08/24 06:45 Hep Bs Antigen Negative s/c (NEGATIVE) 04/17/24 11:54 Hepatitis C Antibody Negative s/c (NEGATIVE) 04/17/24 11:54 Rubella Antibody 121.0 IU/mL (>15) 04/17/24 11:54 VZV IgG Antibody 266 index (Immune >165) 04/17/24 11:54 Glucose 1 Hr 50 gm 207 mg/dL (76-139) H 07/10/24 13:30 Hemoglobin A1c 5.7 % (4.0-6.0) 07/23/23 09:08 Group B Strep (PCR) Neg for grp b strep 09/21/24 10:15 Glucose Tolerance Testin hr (negative) -: Chlamydia screen: negative, Gonorrhea screen: negative and Urine: negative -: PAP smear: Normal Genetic Screens: Cell-free DNA: Normal External Labs -: Urine: negative Prior (ies) Past Pregnancies Del. Date GA/Weeks Labor Lgth Wt Sex Route Outcome Anesthesia Place Delv Breastfeed Preg Comp Name 04/16/12 41+ 15 7 lb 14 oz Female live - full term epidural IH 3 months post-dates induction Jalyn 02/01/17 39 8 lb 14 oz Female live - full term spinal IH 2 months none [place] Delivery Date: 02/01/17 Last Updated by: Krystle Harry RN latch issues Evaluation Evaluation Baseline heart rate: 130 Variability: Moderate (11-25) monitor accelerations: Present Monitor Decelerations: Absent Status: Category l [facility] Medical History (Updated 09/28/24 @ 10:35 by Josselyn Hayes DO) Migraine with aura UTI (urinary tract infection) Self-harming behavior History of section (07/10/16) Sterilization Anorexia nervosa (~2001) Chlamydia (~2011) Surgical History (Updated 02/27/24 @ 08:15 by Krystle Harry RN) History of gynecologic surgery Anesthesia Status post knee surgery (~2006) History of third molar tooth extraction Status post delivery (04/16/12) Family History (Updated 02/27/24 @ 08:18 by Krystle Harry, [place]) Father Hypertension ADD (attention deficit disorder) Grandfather Cancer Grandmother Stomach cancer Non-smoker Grandfather Lung cancer Smoker Prostate cancer Brother ADD (attention deficit disorder) Aunt Breast cancer Social History (System 11/17/18 @ 08:07 by Elba Freeman) marital status: number of children: 2 household members: spouse and children lives independently: Yes caregiver/support person: Yes housing: house pets and animals: Yes (cats, guinea pigs) 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) current occupational exposures/hazards: No special sam needs: No travel history: recent (domestic only) seatbelt use: always water heater temp set < 120 deg: Yes working smoke detector in home: Yes fire extinguisher in home: Yes carbon monox detector in home: Yes firearms in home: Yes firearms unloaded and locked: Yes do you feel safe at home: Yes Smoking Status: Never smoker second hand exposure: No alcohol intake: former (1 glass of wine 1-2 times per week) substance use type: does not use during the past year weight has: remained stable well-balanced diet: daily or most days daily servings fruits/ve or more times/day caffeine: Yes (small AM cup coffee (stopped since becoming )) Type(s) of exercise: walking and other (hiking) frequency: 3-4 times per week Meds Home Medications and Allergies Home Medications Medication Instructions Recorded Confirmed Type vitamin-ferrous sulfate 1 tab PO DAILY 02/27/24 10/08/24 History 27 mg iron-folic acid 0.8 mg tablet blood-glucose meter (Blood Glucose #1 ea 07/10/24 10/08/24 Rx Monitoring kit) lancets #100 ea 07/10/24 10/08/24 Rx blood sugar diagnostic (FreeStyle #100 strips 09/07/24 10/08/24 Rx Lite Strips) Allergies Allergy/AdvReac Type Severity Reaction Status Date / Time amoxicillin [AMOXICILLIN] Allergy Mild Rash Verified 10/08/24 06:43 Review of Systems Review of Systems ROS: Yes All systems reviewed with the patient and are negative except as otherwise documented OB Exam Vital signs Blood Pressure: 122/79 Pulse Rate: 67 HENMT Head: normal to inspection and normocephalic Eyes General: appearance normal, both eyes and all related structures Resp Effort & Inspection: normal respiratory effort and able to speak in complete sentences Extremities Lower extremity: Yes normal to inspection GI Inspection: normal to inspection Other: gravid, nontender, nondistended Objective Labs 10/08/24 06:45 Labs: Laboratory Results - last 24 hr 10/08/24 06:45 WBC 7.2 RBC 4.18 Hgb 12.3 Hct 36.9 MCV 88.4 MCH 29.4 MCHC 33.2 RDW 14.2 Plt Count 237 Neut % (Auto) 63.2 Lymph % (Auto) 27.7 [place] % (Auto) 7.8 Eos % (Auto) 0.8 L Baso % (Auto) 0.5 Neut # (Auto) 4600 Lymph # (Auto) 2000 [place] # (Auto) 600 Eos # (Auto) 100 Baso # (Auto) 0 Assessment and Plan Assessment and Plan Assessment and Plan narrative: 33yo at 39+1wks admitted for repeat section. -CBC, T&S on admission -NST prior to delivery -neuraxial anesthesia -2g Ancef for ppx -PPH risk low -VTE risk low, SCDs with epidural -proceed to OR for delivery once all teams ready section counseling: It was explained to the patient that a section is a surgery to deliver the baby through an incision in the abdominal wall and uterus.? All procedures can be associated with risk and unforeseen complications, which can be immediate or delayed.? Risks and complications of section include, but are not limited to:? infection of the uterus, pelvic organs, or skin; inadvertent injury to internal organs such as the bowel, bladder, or possibly even the baby; blood loss, transfusion, and/or life-threatening hemorrhage requiring hysterectomy; blood clots in the legs, pelvic organs, or lungs; adverse reaction to medications or anesthesia during surgery; development of placenta accreta spectrum in a subsequent ; and increased risk of section in a subsequent . Time-Based Coding :: [30min] spent with patient and on the chart (including review of chart, obtaining history, exam, reviewing outside data, placing orders, documenting exam and treatment plan, and counseling patient) on [10/08/24].
[2024-10-08 07:41] VITALS: BP 122/79; PULSE 67
[2024-10-08] MEDS: CITRIC ACID/SODIUM CITRATE 15 ML SOLUTION 30 ML PO (07:41)
[2024-10-08] MEDS: CEFAZOLIN 2 GM/100 ML PREMIX 100 ML IV (07:45)
[2024-10-08] MEDS: ACETAMINOPHEN IV 1,000 MG/100 ML VIAL 400 MG IV (08:04)
--- NOTE | 2024-10-08 08:26 | SUR.OPER ---
0817 UTERINE INCISION CLEAR FLUID
--- NOTE | 2024-10-08 08:27 | SUR.OPER ---
0827 BABY BOY BORN
--- NOTE | 2024-10-08 08:42 | SUR.OPER ---
SCORES 8 AND 9 PER OB RN
--- NOTE | 2024-10-08 09:03 | SUR.OPER ---
CORD BLOOD AND PLACENTA GIVEN TO OB RN AT END OF CASE. ALL SPECIMENS LABELED WITH PATIENT STICKER (MOM)
--- NOTE | 2024-10-08 09:14 | P.OP_ITS ---
Operative Date/Time/Diagnoses Date of procedure: 10/08/24 Time of procedure: 08:00 Pre-op diagnosis: 1. Zee intrauterine gestation at 39+3 weeks 2. History of prior section 3. Gestational diabetes class A1 4. IVF Post-op diagnosis: same Procedure & Clinicians Procedure: Repeat low transverse section Same procedure as scheduled: Yes Indications: 33yo at 39+3wks admitted for planned repeat section. Surgeon: Josselyn Hayes Maintenance Machine Repairer: Salvador Rivera Reason for Maintenance Machine Repairer: Maintenance Machine Repairer was necessary for timely, efficient, and safe completion of the procedure. Anesthesia Type: Spinal Operative Notes Findings: Normal-appearing uterus. Bilateral adnexa palpated and no abnormalities appreciated. Clear fluid noted with AROM. Delivery productive of a viable male in cephalic presentation with APGARS 8/9 and weighing 3524g. Intraoperative meds administered: Duramorph and Ketorolac Applied: Catheter Estimated Blood Loss (mL): 800 Blood products transfused: none Procedure in detail: The risks, benefits, indications and alternatives of the procedure were reviewed with the patient and informed consent was obtained. The patient was taken to the operating room where spinal anesthesia was obtained without difficulty and was found to be adequate. Sequential compression devices were placed bilaterally for VTE prophylaxis. She was then prepped and draped in the normal, sterile fashion in the dorsal supine position with a leftward tilt. She received 2g Ancef for surgical prophylaxis. A Pfannenstiel skin incision was then made with the scalpel and carried through to the underlying layer of fascia. The fascia was incised in the midline and the incision extended laterally with the Soriano scissors. The inferior aspect of the fascial incision was grasped with Leydi clamps, elevated, and the underlying rectus muscles were dissected off sharply with Soriano scissors. Attention was then turned to the superior aspect of the incision, which, in a similar fashion, was grasped, tented up with Leydi clamps and the rectus muscles were dissected off sharply. Scar tissue noted throughout the subcutaneous and fascial layers. The rectus muscles were then at the midline. The peritoneum was identified, and entered digitally. The peritoneal incision was then extended horizontally, superiorly and inferiorly, with good visualization of the bladder. No intraabdominal adhesions noted. The Brendan retractor was then inserted. The vesicouterine peritoneum was then identified, grasped with pick-ups, and entered sharply with Metzenbaum scissors. This incision was then extended laterally and the bladder flap was created digitally. The lower uterine segment was incised in a transverse fashion with the scalpel. The uterine incision was then extended manually in a cephalad/caudad direction. The amniotic sac was artificially ruptured, productive of clear fluid. The ?s head delivered atraumatically through the hysterotomy without difficulty, followed by the body.? The cord was doubly clamped and cut after a 60sec delay with the handed off to the waiting pediatrics team. The placenta was then removed spontaneously with gentle traction on the umbilical cord. The uterus was then left in-situ and cleared of all clots and debris. The uterine incision was repaired with 0-vicryl in a running, locked fashion with excellent hemostasis achieved. The paracolic gutters were cleared of all clot and debris. PerClot hemostatic agent was applied to the hysterotomy and vesicouterine peritoneum. The Brendan retractor was then removed. The fascia was reapproximated with 0-PDS in a running fashion. The subcutaneous layer was closed with 3-0 vicryl in simple, interrupted sutures. The skin was closed with 4-0 monocryl in a subcuticular fashion. The incision was then dressed with steri-strips and an Aquacel dressing was applied. At the completion of the case, a Crede maneuver was performed with good uterine tone and minimal vaginal bleeding noted.? The patient tolerated the procedure well. Sponge, lap and needle counts were correct x3. The patient was taken to the recovery room in stable condition. Complications: none Baby 1: Delivery Date: 10/08/24 Delivery Time: 08:27 Infant Gender: Male Presentation: vertex Placental Delivery Description: Spontaneous Cord Vessel Description: 3 Vessels score (1 min): 8 score (5 min): 9 weight: 7 lb 12.305 oz Post-operative Condition: stable Disposition: PACU Aftercare: routine postop
[2024-10-08 09:15] VITALS: BP 111/69; PULSE 12; RESP 100; TEMP 36.4
[2024-10-08 09:20] VITALS: BP 138/81; PULSE 76; RESP 2; O2SAT 100
[2024-10-08 09:25] VITALS: BP 119/52; PULSE 77; RESP 12; O2SAT 100
[2024-10-08 09:30] VITALS: BP 119/72; PULSE 63; RESP 14; O2SAT 100
[2024-10-08] MEDS: ACETAMINOPHEN 325 MG TABLET 650 MG PO ×2 (14:18→20:27)
[2024-10-08] MEDS: KETOROLAC 30 MG/ML VIAL IV ×2 (14:19→20:27)
[2024-10-09] MEDS: KETOROLAC 30 MG/ML VIAL IV (02:32)
[2024-10-09] MEDS: ACETAMINOPHEN 325 MG TABLET 650 MG PO ×2 (02:32→08:26)
[2024-10-09 05:51] LABS: Add Manual Diff / Slide Review NO; Basophils Absolute Auto 0 /uL (0-100); Basophils Percent Auto 0.3 % (0-2); Eosinophils Absolute Auto 0 /uL (0-450); Eosinophils Percent Auto 0.2 % (2-4); Hematocrit 29.2 % (36-46); Lymphocytes Absolute Auto 1000 /uL (1100-4500); Lymphocytes Percent Auto 7.9 % (25-40); Mean Corpuscular HGB Conc 34.3 % (30-36); Mean Corpuscular Hemoglobin 29.6 PG (26-34); Mean Corpuscular Volume 86.2 fL (80-100); Monocytes Absolute Auto 700 /uL (0-900); Monocytes Percent Auto 5.7 % (3-14); Neutrophils Absolute Auto 10800 /uL (1500-7000); Neutrophils Percent Auto 85.9 % (50-75); Platelet Count 192 X10^3/uL (150-400); Red Blood Cell Count 3.39 X10^6/uL (4.0-5.2); Red Cell Distribution Width 14.1 % (11.6-14.8); White Blood Cell Count 12.6 X10^3/uL (4.5-11.0)
[2024-10-09] MEDS: IBUPROFEN 600 MG TABLET PO (08:26)
[2024-10-09 13:30] VITALS: BP 119/72; PULSE 63; RESP 14; TEMP 36.4
--- NOTE | 2024-10-10 13:44 | P.DS_ITS ---
Discharge Providers Provider Date of admission: 10/08/24 05:44 Discharge Date: 10/09/24 Primary care physician: Betsey Patel DO Consults: 10/08/24 09:54 Consult to Site Auditor Routine Comment: Discharge provider: Elba Jha MD Summary Hospital Course Date Patient Seen: 10/09/24 Time Patient Seen: 13:15 Diagnoses: 39+1 weeks gestation Previous c section Repeat Hospital Course: Patient is a 33-year-old 3 para 3 who presented on October 08, 2024 for a scheduled repeat low-transverse section at 39-,1/7 weeks gestation. She underwent this procedure under spinal anesthesia without any complications. On postop day #1 patient was able to void without the catheter, her pain was well controlled with ibuprofen and Tylenol, she was ambulating independently, was going well, and she had no nausea or vomiting. Patient requested discharge. Peripartum Data Infant Delivery Method: Section Procedures: Spinal anesthesia Repeat low-transverse section complications: none 1: Gender: Male Disposition of : home Status at Discharge Cognitive/behavioral status at discharge: oriented Functional status at discharge: independent ambulation Overall status at discharge: patient is progressing back to baseline Time Spent with Patient Time attestation: Total time spent providing and/or coordinating discharge services: Time spent: Less than 30 minutes Objective Labs 10/09/24 05:41 Exam Vital Signs (past 8 hours): Oxygen Delivery Method Room Air Narrative Exam Narrative: Generally: Patient is sitting in chair, no acute distress Lungs: Clear to auscultation bilaterally Cardiovascular: Regular rate and rhythm Fundus: Firm at U -1 Incision: Clean dry and intact with Aquacel dressing Extremities: Trace edema, negative Homans Discharge Plan Discharge Plan Patient Disposition: Home Provider Discharge Comment: Take ibuprofen 600mg every 6hrs and acetaminophen 650mg every 6hrs for pain. Avoid lifting greater than 20lbs for at least 4 weeks. Avoid placing anything in the vagina for at least 6 weeks. Discharge orders & Medications Prescriptions: Continued vit-ferrous sulfat-FA 27 mg iron- 0.8 mg tablet 1 tab PO DAILY No Action (DME) lancets Misc See Rx Instructions .ROUTE .MEDSUPPLY Qty: 100 3RF Rx Instructions: please chk AM fasting blood sugar, and 2 hour after brkfst, lunch and dinner (DME) blood-glucose meter [Blood Glucose Monitoring] Kit See Rx Instructions .ROUTE .MEDSUPPLY Qty: 1 0RF Rx Instructions: please chk AM fasting blood sugar, and 2 hours after brkfst, lunch and dinner (DME) FreeStyle Lite Strips Strip See Rx Instructions .ROUTE .COMPLEX Qty: 100 0RF Dose Instruction: PLEASE CHECK FASTING BLOOD GLUCOSE, AND 2 HOURS AFTER BREAKFAST, LUNCH AND DINNER Rx Instructions: PLEASE CHECK FASTING BLOOD GLUCOSE, AND 2 HOURS AFTER BREAKFAST, LUNCH AND DINNER Follow up/Referrals: Josselyn Hayes DO [Physician] - (Follow up in 1 week for incision check on October 19 at 2:15pm. Follow-up in 6 weeks on November 20 at 11:00am. ) Diet/Activity/Treatments Diet: Diet as Tolerated Activity: As tolerated. Nothing in the vagina for 6 weeks Skin/Wound/Dressing Care Report to your healthcare provider any signs of infection, such as:: chills, fever, increased pain, unusual drainage and unusual redness Dressing: You may shower normally with the Aquacel in place. Visit Report/Discharge Packet Instructions: DI for Stand Alone Forms: Patient Portal/API, Stroke Signs & Symptoms Discharge Data Primary Care Provider: Betsey Patel
== END 2024-10-09 13:55 | disposition home or self-care (01) | DRG 788 ==
PROVIDERS: Admitting Provider Student in an Organized Health Care Education/Training Program; Family Provider Obstetrics & Gynecology; PCP Family Medicine; Referring Provider Student in an Organized Health Care Education/Training Program; Visit Provider Student in an Organized Health Care Education/Training Program
PROC: 10D00Z1 Extraction of Products of Conception, Low, Open Approach (ICD-10-PCS; CPT 59514; principal; 2024-10-08 07:45)
DX: O34.211 Maternal care for low transverse scar from previous cesarean delivery (principal); Z3A.39 39 weeks gestation of pregnancy; Z37.0 Single live birth; O24.429 Gestational diabetes mellitus in childbirth, unspecified control
CPT/HCPCS: 36415; 59050; 85025; 86850; 86900; 86901; J0134; J0690; J1885; J2274; J2405; J2704

== ENCOUNTER → 2025-07-11 09:53 | Outpatient (CLI) | payer OTHER, SELFPAY | PROVIDERS: PCP Family Medicine; Visit Provider Registered Nurse | DX: R30.0 Dysuria (principal) | CPT/HCPCS: 87077; 87086; 87186 ==